=== PATIENT | male | born 1955 | race African-American/Black ===

== ENCOUNTER 2017-11-23 12:24 | Emergency (ER) | payer MEDICAID ==
[~2017-11-23] VITALS: Ht 167.6 cm; Wt 63.9 kg
[2017-11-23] MEDS ORDERED: LORAZEPAM 2MG/ML CPJ IV NR (13:45)
[2017-11-23] MEDS ORDERED: FAMOTIDINE 20MG/2ML VIAL IV NR (13:45)
[2017-11-23 13:55] LABS: BASOPHILS % 0.2 % (0.0-2.0); EOSINOPHILS % 0.5 % (0.0-5.0); HEMATOCRIT. 44.1 % (42.0-52.0); LYMPHOCYTES % 26.2 % (20.0-50.0); MEAN CORPUSCULAR HEMOGLOBIN 33.4 pg (28.0-32.0); MEAN CORPUSCULAR VOLUME 98.2 fL (80.0-94.0); MEAN PLATELET VOLUME 7.6 fl (7.4-10.4); MONOCYTES % 9.4 % (2.0-8.0); NEUTROPHILS % 63.7 % (40.0-76.0); PLATELET 288 x1000/uL (130-400); RED BLOOD CELL COUNT 4.49 mill/uL (4.7-6.1); RED CELL DISTRIBUTION WIDTH 17.8 % (11.6-14.6)
[2017-11-23 13:59] LABS: CHLORIDE 104 mEq/L (98-107)
[2017-11-23 14:03] LABS: PARTIAL THROMBOPLASTIN TIME 24.6 sec (23.4-31.0); PROTHROMBIN TIME 10.3 sec (9.4-11.6)
[2017-11-23 14:04] LABS: ETHANOL BLOOD 204 mg/dL
[2017-11-23] MEDS: SODIUM CHLORIDE 0.9% 1,000 ML IV NR ×3 (15:26→18:50)
[2017-11-23 18:46] LABS: *AMPHETAMINES SCREEN URINE NEGATIVE (NEGATIVE); *BARBITURATES SCREEN URINE NEGATIVE (NEGATIVE); *BENZODIAZEPINES SCREEN URINE PRESUMTIVE POSITIVE (NEGATIVE); *COCAINE SCREEN URINE NEGATIVE (NEGATIVE); CANNABINOID URINE SCREEN NEGATIVE (NEGATIVE); METHADONE URINE SCREEN NEGATIVE (NEGATIVE); OPIATES URINE SCREEN NEGATIVE (NEGATIVE); PHENCYCLIDINE URINE SCREEN NEGATIVE (NEGATIVE)
[2017-11-23 19:01] VITALS: BP 120/87
== END 2017-11-23 19:00 | disposition home or self-care (01) ==
LOC: ER 12:24
DX: F10.229 Alcohol dependence with intoxication, unspecified (principal); F41.9 Anxiety disorder, unspecified; F13.10 Sedative, hypnotic or anxiolytic abuse, uncomplicated; Y90.7 Blood alcohol level of 200-239 mg/100 ml; Z98.890 Other specified postprocedural states
CPT/HCPCS: 36415; 70450; 71045; 80053; 80305; 82962; 83880; 84443; 84484; 85025; 85610; 85730; 93005; 96361; 96374; 96375; 99285; G0482; J2060; J3490; J7030; Z7610

== ENCOUNTER 2018-10-11 07:44 | Inpatient (IN) | payer MEDICAID, OTHER ==
[~2018-10-11] VITALS: Ht 170.2 cm; Wt 62.1 kg
[2018-10-11] MEDS ORDERED: SODIUM CHLORIDE 0.9% 1,000 ML IV ONE ×2 (08:15→12:26)
[2018-10-11 08:32] LABS: BASOPHILS % 0.5 % (0.0-2.0); HEMATOCRIT. 49.6 % (42.0-52.0); HEMOGLOBIN. 16.6 g/dL (14.0-18.0); LYMPHOCYTES % 16.9 % (20.0-50.0); MEAN CORPUSCULAR HEMOGLOBIN 31.5 pg (28.0-32.0); MEAN PLATELET VOLUME 7.9 fl (7.4-10.4); MONOCYTES % 7.3 % (2.0-8.0); NEUTROPHILS % 75.3 % (40.0-76.0); PLATELET 236 x1000/uL (130-400); RED BLOOD CELL COUNT 5.27 mill/uL (4.7-6.1); RED CELL DISTRIBUTION WIDTH 15.5 % (11.6-14.6)
[2018-10-11 08:35] LABS: CHLORIDE 97 mEq/L (98-107)
[2018-10-11 08:39] LABS: ETHANOL BLOOD 54 mg/dL
[2018-10-11 08:49] LABS: CLARITY URINE CLEAR (CLEAR); COLOR URINE YELLOW (YELLOW); KETONES URINE 1+ (NEGATIVE); LEUKOCYTE ESTERASE URINE NEGATIVE (NEGATIVE); NITRITE URINE NEGATIVE (NEGATIVE); OCCULT BLOOD URINE 1+ (NEGATIVE); PROTEIN URINE NEGATIVE (NEGATIVE); SPECIFIC GRAVITY URINE 1.014 (1.005-1.030)
[2018-10-11 09:06] LABS: *AMPHETAMINES SCREEN URINE NEGATIVE (NEGATIVE); *BARBITURATES SCREEN URINE NEGATIVE (NEGATIVE); *BENZODIAZEPINES SCREEN URINE PRESUMTIVE POSITIVE (NEGATIVE); *COCAINE SCREEN URINE NEGATIVE (NEGATIVE)
[2018-10-11 09:07] LABS: METHADONE URINE SCREEN NEGATIVE (NEGATIVE); OPIATES URINE SCREEN NEGATIVE (NEGATIVE)
[2018-10-11 09:08] LABS: CANNABINOID URINE SCREEN NEGATIVE (NEGATIVE); PHENCYCLIDINE URINE SCREEN NEGATIVE (NEGATIVE)
[2018-10-11] MEDS ORDERED: LORAZEPAM 2MG/ML CPJ IV ONE ×2 (10:45→12:30)
[2018-10-11] MEDS ORDERED: CHLORDIAZEPOXIDE 25MG CAPSULE PO ONE (10:45)
[2018-10-11] MEDS ORDERED: MULTIVITAMINS,THER W-MINERALS TABLET PO STA (12:59)
[2018-10-11] MEDS ORDERED: ONDANSETRON HCL 4MG/2ML INJ IV PRN (13:15)
[2018-10-11] MEDS ORDERED: DOCUSATE SODIUM 100MG CAPSULE PO PRN (13:15)
[2018-10-11] MEDS ORDERED: GUAIFENESIN 200MG/10ML SUGAR FREE UDC PO PRN (13:15)
[2018-10-11] MEDS ORDERED: MAGNESIUM/ALUMINUM HYDROXIDE/SIMETHICONE 30ML UDC PO PRN (13:15)
[2018-10-11] MEDS ORDERED: NITROGLYCERIN 0.4MG TABLET SL SL PRN (13:15)
[2018-10-11] MEDS ORDERED: KETOROLAC 15MG/ML VIAL IV PRN (13:15)
[2018-10-11] MEDS ORDERED: IPRATROPIUM/ALBUTEROL 0.5-3(2.5)MG/3ML NEB INH PRN (13:15)
[2018-10-11] MEDS ORDERED: CLONIDINE 0.1MG TABLET PO PRN (13:15)
[2018-10-11] MEDS ORDERED: LORAZEPAM 2MG/ML CPJ IV PRN (13:15)
[2018-10-11] MEDS ORDERED: ACETAMINOPHEN 325MG TABLET PO PRN (13:15)
[2018-10-11] MEDS ORDERED: MVI, ADULT NO.1 10 ML, FOLIC ACID 1 MG, THIAMINE HCL 100 MG in SODIUM CHLORIDE 0.9% 1,0... IV SCH ×4 (13:30)
[2018-10-11] MEDS ORDERED: ENOXAPARIN 40MG/0.4ML SYR SUBCUT SCH (14:00)
[2018-10-11] MEDS ORDERED: CHLORDIAZEPOXIDE 25MG CAPSULE PO SCH (14:00)
[2018-10-11 15:00] VITALS: BP 112/63
[2018-10-11 16:27] VITALS: BP 112/63
[2018-10-11 20:00] VITALS: BP 100/69
[2018-10-11] MEDS ORDERED: PNEUMOCOCCAL 23-VAL P-SAC VAC 0.5 ML IM ONE (21:00)
[2018-10-11] MEDS: FAMOTIDINE 20MG TABLET PO SCH (21:08)
[2018-10-11] MEDS: CHLORDIAZEPOXIDE 5 MG CAPSULE PO SCH (21:19)
[2018-10-12] VITALS: BP 105/67
[2018-10-12 04:00] VITALS: BP 115/71
[2018-10-12] MEDS: CHLORDIAZEPOXIDE 5 MG CAPSULE PO SCH (05:42)
[2018-10-12 08:00] VITALS: BP 120/83
[2018-10-12] MEDS: FAMOTIDINE 20MG TABLET PO SCH (09:57)
[2018-10-12 12:00] VITALS: BP 118/72
[2018-10-12 15:55] VITALS: BP 118/72
== END 2018-10-12 16:28 | disposition home or self-care (01) | DRG 52 ==
LOC: ER 07:44 → 8WST 12:59 → ENRESERV 13:56 → 8WST 15:44
PROVIDERS: ADMIT Internal Medicine; ATTEND Internal Medicine
DX: G92 Toxic encephalopathy (principal); K70.30 Alcoholic cirrhosis of liver without ascites; F10.239 Alcohol dependence with withdrawal, unspecified; Y90.2 Blood alcohol level of 40-59 mg/100 ml; Z86.73 Personal history of transient ischemic attack (TIA), and cerebral infarction without residual deficits; Z79.899 Other long term (current) drug therapy
CPT/HCPCS: 36415; 71045; 80305; 80320; 82962; 83036; 93005; 93970; 96361; 96374; 96375; 97162; 97535; 99285; J1650; J2060; J3411; J3490; J7030; G0480